=== PATIENT | male | born 1985 | race Caucasian/White ===

== ENCOUNTER 2018-04-27 12:30 | Emergency (ER) | payer SELFPAY ==
[~2018-04-27] VITALS: Ht 180.3 cm; Wt 77.1 kg
--- NOTE | 2018-04-27 12:46 | ED PSYCHIATRIC COMPLAINT ---
History of Present Illness General Chief Complaint: ETOH/Drug Related Complaint Stated Complaint: OVERDOSE Source: patient, old records, friend Exam Limitations: intoxication Vital Signs & Intake/Output Vital Signs & Intake/Output Vital Signs Date Time Temp Pulse Resp B/P B/P Pulse O2 O2 Flow FiO2 Mean Ox Delivery Rate 04/27 1254 98 Room Air 04/27 1233 71 20 177/84 100 Ventilator Room Air Allergies Coded Allergies: No Known Allergies (04/27/18) Reconcile Medications No Known Home Medications Triage Note: RECEIVED 32 YO MALE BOUGHT TO ED BY FRIEND FOR OVERDOSE. ACCORDING TO FRIEND, PT SNORTED ONE BAG OF HEROIN AND TOOK UNKNOWN AMOUNT OF CLONOPIN. PT BOUGHT DIRECTLY TO ROOM # 11 AND RESPIRATIONS ASSISTED BY 100% BVM. PT CONNECTED TO COUPON AND BOND COLLECTION CLERK. B/P AND HR STABLE. O2 SATS 100% BY BVM. PT EVALUATED BY DR SPRINGER IMMEDIATELY. PT MEDICATED WITH 0.8 MG NARCAN IV AND PT IMMEDIATELY BECAME CONSCIOUS. PT WAS UNCONSCIOUS AND UNRESPONSIVE UPON ARRIVAL TO THE ED. Triage Nurses Notes Reviewed? yes Onset: Just prior to arrival Duration: minute(s):, constant, continues in ED, getting worse Timing: recent history Severity: severe HPI: Prior to admission the patient insufflated a bag of heroin and smoked a joint then became obtunded without respiration with diaphoresis. He denies fever chills nausea vomiting diarrhea abdominal pain chest pain shortness breath headache dysuria rash bleeding suicidal ideation homicidal ideation hallucination. Past History Travel History Traveled to [place] past 21 day No Medical History Any Pertinent Medical History? see below for history Psychiatric: opioid dependence Surgical History Surgical History: non-contributory Family History Hx Contributory? No Review of Systems Review of Systems Constitutional: Reports: see HPI, weakness. EENTM: Reports: no symptoms. Respiratory: Reports: see HPI. Cardiovascular: Reports: no symptoms. GI: Reports: no symptoms. Genitourinary: Reports: no symptoms. Musculoskeletal: Reports: no symptoms. Skin: Reports: no symptoms. Neurological/Psychological: Reports: see HPI, weakness. Hematologic/Endocrine: Reports: no symptoms. Immunologic/Allergic: Reports: no symptoms. All Other Systems: Reviewed and Negative Physical Exam Physical Exam General Appearance: well developed/nourished, lethargic, severe distress, intoxicated Head: atraumatic, normal appearance Eyes: Bilateral: normal appearance, PERRL, EOMI. Ears, Nose, Throat: normal pharynx, normal ENT inspection, hearing grossly normal Neck: normal inspection, supple Respiratory: normal breath sounds Cardiovascular: regular rate/rhythm Gastrointestinal: normal bowel sounds, soft, non-tender, no organomegaly Extremities: normal range of motion, no ligament instability Neurological/Psychiatric: disoriented x 3 Appearance/Memory/Insight: impaired insight Behavoir/Eye Contact/Speech: cooperative Thoughts/Hallucinations: no apparent hallucination Skin: intact, normal color, diaphoresis SAD PERSONS Done? patient not suicidal Progress Differential Diagnosis: drug intoxication, drug overdose, drug withdrawal, electrolyte abnormality, hypoglycemia Plan of Care: Orders Procedure Date/time Status URINE DRUG SCREEN FOR ER ONLY 04/27 123 Active ETHANOL 04/27 123 Complete COMPREHENSIVE METABOLIC PANEL 04/27 123 Complete CBC WITHOUT DIFFERENTIAL 04/27 123 Complete ED CRISIS PSYCH CONSULT 04/27 1236 Active Laboratory Tests 04/27/18 1249: Anion Gap 15, Estimated GFR > 60, BUN/Creatinine Ratio 13.0, Glucose 149 H, Calcium 9.3, Total Bilirubin 0.5, AST 27, ALT 34, Alkaline Phosphatase 81, Total Protein 7.7, Albumin 4.7, Globulin 3.0, Albumin/Globulin Ratio 1.6, CBC w Diff NO MAN DIFF REQ, RBC 5.00, MCV 91.1, MCH 31.3 H, MCHC 34.3, RDW 13.1, MPV 8.5, Gran % 60.7, Lymphocytes % 26.9, Monocytes % 7.6, Eosinophils % 4.1, Basophils % 0.7, Absolute Granulocytes 6.1, Absolute Lymphocytes 2.7, Absolute Monocytes 0.8 H, Absolute Eosinophils 0.4, Absolute Basophils 0.1, Serum Alcohol < 10.0 Comments: Patient declines to observation period and crisis evaluation. He was advised of complications and possible and reports he will leave after one hour of observation. Departure Departure Time of Disposition: 1351 Disposition: LEFT AGAINST MEDICAL ADVICE Condition: Guarded Clinical Impression Primary Impression: Accidental heroin overdose Departure Forms: DETOX FACILITIES LIST General Discharge Information Prescriptions: Current Visit Scripts No Known Home Medications Departure Departure Condition: Stable Departure Forms: Customer Survey General Discharge Information Prescriptions: Current Visit Scripts No Known Home Medications
[2018-04-27 12:58] LABS: ABSOLUTE BASOPHIL COUNT 0.1 /CUMM (0.0-0.2); ABSOLUTE EOSINOPHIL COUNT 0.4 /CUMM (0.0-0.7); ABSOLUTE GRANULOCYTE CT 6.1 /CUMM (1.4-6.5); ABSOLUTE LYMPH COUNT 2.7 /CUMM (1.2-3.4); ABSOLUTE MONOCYTE COUNT 0.8 /CUMM (0.10-0.60); BASOPHIL % 0.7 % (0.0-2.0); EOSINOPHIL % 4.1 % (0-5); GRANULOCYTE % 60.7 % (42.2-75.2); HEMATOCRIT 45.5 % (42-52); MEAN CORPUSCULAR HGB 31.3 PG (27.0-31.0); MEAN CORPUSCULAR HGB CONC 34.3 G/DL (33.0-37.0); MEAN CORPUSCULAR VOLUME 91.1 FL (80.0-94.0); MEAN PLATELET VOLUME 8.5 FL (7.4-10.4); PLATELET COUNT 259 /CUMM (130-400); RBC DISTRIBUTION WIDTH 13.1 % (11.5-14.5); WHITE BLOOD CELL COUNT 10.1 /CUMM (4.8-10.8)
[2018-04-27 14:21] VITALS: BP 125/62
== END 2018-04-27 14:23 | disposition left against medical advice (07) ==
LOC: ERH 12:30
PROVIDERS: Emergency Medicine
DX: T40.1X1A Poisoning by heroin, accidental (unintentional), initial encounter (principal)
CPT/HCPCS: 80307; 96374; 99291; G0480